=== PATIENT | female | born 1990 | race Two or more races ===

== ENCOUNTER 2024-08-30 05:47 | Emergency (ER) | payer MEDICAID, SELFPAY ==
[2024-08-30 05:50] VITALS: BP 144/83; PULSE 96; RESP 17; TEMP 36.8; O2SAT 97; BMI 46.6
--- NOTE | 2024-08-30 06:57 | PD.EDVAGBL ---
ED OB Contraction Preg RMI/HPI General Chief complaint: Vaginal Bleeding Stated complaint: 5 WKS PREG VAG BLEED ABD PAIN Time Seen by Provider: 08/30/24 06:26 Source: patient Arrival date/time: 08/30/24 05:47 This is a 34-year-old female who presents to the emergency department with acute complaints of vaginal bleeding for 2 days. She does report she is approximately 5 weeks of gestation does report she passed a large blood clot and tissue this morning prompting her ED ER visit today. Denies fever, dysuria mild pelvic pain reported. Limitations: no limitations Related Data Allergies Allergy/AdvReac Type Severity Reaction Status Date / Time No Known Allergies Allergy Verified 08/30/24 05:56 Review of Systems Review of Systems Systems Reviewed: All systems reviewed, normal except as documented Narrative Review of Systems: Gen: No fever, no chills, no weight loss EYES: No discharge, no visual changes, no pain HEENT: No ear pain, no congestion, no sore throat PULM: No shortness of breath, no cough, no congestion CV: No chest pain, no dyspnea on exertion, no palpitations GI: No nausea, no vomiting, no diarrhea, no pain, no constipation : No frequency, no urgency, no dysuria Musc/skel: No joint pain, no back pain Skin: No rash Psyc: No hallucinations, no depression Heme/Lymph: No easy bleeding or bruising tendencies Neuro: No weakness, no headache ED Exam General Limitations: Present no limitations General appearance: Present alert and in no apparent distress Head Head exam: Present atraumatic Eye Eye exam: Present normal appearance, PERRL and EOMI ENT ENT exam: Present normal exam, normal oropharynx and mucous membranes moist Neck Neck exam: Present normal inspection, full ROM and trachea midline Chest Chest inspection: Present normal inspection and symmetric chest wall rise Respiratory Respiratory exam: Present normal lung sounds bilaterally Cardiovascular Cardiovascular exam: Present regular rate, normal rhythm and normal heart sounds Abdominal Exam Abdominal exam: Present soft and normal bowel sounds Extremities Exam Extremities exam: Present normal inspection and full ROM Back Exam Back exam: Present normal inspection and full ROM Neurological Exam Neurological exam: Present alert, oriented X3 and CN II-XII intact Psychiatric Psychiatric exam: Present normal affect and normal mood Skin Skin exam: Present warm, dry, intact and normal color Course Quality Measures none Orders Category Date Time Status US OB <= 14 weeks fetus Stat Exams 08/30/24 07:23 Completed ABO/RH Type Stat Lab 08/30/24 07:50 Completed Beta HCG,Quantitative Stat Lab 08/30/24 07:50 Completed CBC Stat Lab 08/30/24 07:50 Completed Comprehensive Metabolic Panel Stat Lab 08/30/24 07:50 Completed Urinalysis Stat Lab 08/30/24 07:01 Completed Urine Culture Stat Lab 08/30/24 07:01 Received Vital Signs Vital signs: Vital Signs Temperature 98.2 F 08/30/24 05:50 Pulse Rate 96 08/30/24 05:50 Respiratory Rate 17 08/30/24 05:50 Blood Pressure 144/83 H 08/30/24 05:50 Pulse Oximetry (%) 97 08/30/24 05:50 Oxygen Delivery Method Room Air 08/30/24 05:50 Vaginal Bleeding MDM Narrative MDM Narrative: Patient presents with first-trimester vaginal bleeding and passage of tissue, concerning for threatened or spontaneous miscarriage. She is clinically stable, denies signs of hemodynamic compromise or infection. Given her gestational age (~5 weeks), the bleeding pattern, and reported passage of tissue, differentials include complete or incomplete spontaneous , subchorionic hemorrhage, or non-viable intrauterine . A pelvic ultrasound and quantitative beta-hCG are indicated to assess for intrauterine , retained products of conception, and to rule out ectopic - Pelvic ultrasound demonstrates no gestational sac. Beta-hCG quant 800. Symptoms and ultrasound most likely due to spontaneous miscarriage. At this time I will discharge patient close follow-up with [facility] serial quant's and repeat ultrasound. ER precautions given to return Patient data External records reviewed:: [facility] previous records Clinical information provided by:: patient Social determinants that could affect healthcare access:: none Patient has the following chronic illnesses:: No How is presenting disease/condition affected by chronic disease/condition?: no chronic disease Evaluation data The following diagnostics were reviewed and interpreted by me:: lab results and radiology exam(s) Lab and/or radiology exams considered but not ordered:: Not applicable Interpretation Summary: Examination: Complete OB ultrasound, less than 14 weeks, transabdominal Date and time of exam: August 30, 2024, 0754 hrs. Indications: Vaginal bleeding beginning 2 days ago. Technique: Obstetrical ultrasound images less than 14 weeks performed via transabdominal imaging Findings: Uterus 10.3 cm, no uterine mass or intrauterine gestation. Endometrial stripe 1.4 cm. Right ovary 3.4 cm arterial flow. Left ovary 2.4 cm arterial flow, 18 mm follicular cyst. Impression: No uterine mass or intrauterine gestation. Medications / Prescriptions Medications or Prescriptions considered but not ordered:: No Medication administrations:: Not applicable Consultations Consultation(s) initiated? (list below): No Diagnosis Vaginal Bleeding Differential Diagnosis: missed , threatened , menometrorrhagia, incomplete , ectopic without intrauterine and vaginal bleeding Most likely diagnosis given after review of the tests above:: Threatened Admission Indicated Admission indicated?: not indicated Admission Request Was there a request for admission?: No Disposition Plan Disposition Plan: Discharge Discharge Attestation Discharge Attestation: The patient and all family members were given an opportunity to ask questions and understood the discharge instructions. Discharge instructions specifically effects, indications for sooner follow up or return to the emergency department, and the expected course of current diagnosis. Patient condition: Stable Discharge Plan Plan Patient Disposition: HOME (Self Care) Prescriptions/Referrals Referrals: Bry Balderrama MD [Primary Care Provider] - In 1 week Problem List Clinical Impression: Complete miscarriage Patient/Caregiver Discharge Instructions Discharge Activity: activity as tolerated Education Materials: ED MISCARRIAGE Completed Additional Instructions: Your hCG is 800. Ultrasound does not demonstrate a gestational sac Please follow-up with your primary doctor or [facility] for follow-up care Will need a repeat of hCG quantitative number Return to the emergency department with any worsening symptoms or change in condition. Print Language: Kiswahili Stand Alone Forms: Kelly Award Info., Patient Portal Info Letter ROSAURA/CHEVY Supervising Physician ROSAURA/CHEVY Supervising Physician: Dr corcoran
--- NOTE | 2024-08-30 07:23 | XR_ITS ---
Examination: Complete OB ultrasound, less than 14 weeks, transabdominal Date and time of exam: August 30, 2024, 0754 hrs. Indications: Vaginal bleeding beginning 2 days ago. Technique: Obstetrical ultrasound images less than 14 weeks performed via transabdominal imaging Findings: Uterus 10.3 cm, no uterine mass or intrauterine gestation. Endometrial stripe 1.4 cm. Right ovary 3.4 cm arterial flow. Left ovary 2.4 cm arterial flow, 18 mm follicular cyst. Impression: No uterine mass or intrauterine gestation.
[2024-08-30 07:30] LABS: Collection Type, Urine Clean Catch
[2024-08-30 08:05] LABS: Bilirubin,Urine Negative (Negative); Blood,Urine 3+ (Negative); Calcium Oxalate Crystals,Urine 4+; Clarity,Urine Turbid (Clear/Hazy); Color,Urine Yellow (Lt Yel-Yel); Glucose, Urine Negative (Negative); Ketones,Urine Trace (Negative); Leukocyte Esterase,Urine Negative (Negative); Nitrite,Urine Negative (Negative); PH,Urine 6.0 (5.0-7.0); Protein,Urine 1+ (Neg - Trace); RBC,Urine 527 /hpf (0-3); Specific Gravity,Urine 1.042 (1.001-1.035); Squamous Epithelial Cell,Urine 3 /hpf (0-5); Urobilinogen,Urine 2.0 mg/dL (0.0-1.0); WBC,Urine 3 /hpf (0-5)
[2024-08-30 08:08] LABS: Basophils # (Auto) 0.1 Thou/mm3 (0.0-0.2); Basophils % (Auto) 1 % (0-2.5); Eosinophils # (Auto) 0.3 Thou/mm3 (0.0-0.5); Eosinophils % (Auto) 3 % (0-10); Hematocrit 32.5 % (36.0-46.0); Hemoglobin 11.1 g/dL (12.0-16.0); Immature Granulocytes Auto 0.02 Thou/mm3 (0.00-0.00); Lymphocytes # (Auto) 3.3 Thou/mm3 (1.0-4.8); Lymphocytes % (Auto) 40 % (10-50); Mean Corpuscular HGB Conc 34.2 g/dl (31.0-37.0); Mean Corpuscular Hemoglobin 30.4 pg (25.0-35.0); Mean Corpuscular Volume 89 fL (80-100); Monocytes # (Auto) 0.9 Thou/mm3 (0.0-0.8); Monocytes % (Auto) 11 % (0-12); Neutrophils # (Auto) 3.7 Thou/mm3 (1.8-7.7); Neutrophils % (Auto) 45 % (37-80); Nucleated Red Blood Cell # 0.00 Thou/mm3 (0.00-0.00); Nucleated Red Blood Cell % 0 /100 WBC (0); Platelet Count 215 Thou/mm3 (140-440); RDW Standard Deviation 46.3 fL (36.4-46.3); Red Blood Count 3.65 Miln/mm3 (4.00-5.20); White Blood Count 8.1 Thou/mm3 (3.6-11.0)
[2024-08-30 08:29] LABS: Alanine Aminotransferase 25 U/L (10-49); Albumin, Serum 4.2 gm/dL (3.5-5.0); Albumin/Globulin Ratio 1.6 (1.2-2.2); Alkaline Phosphatase 109 U/L (46-116); Anion Gap 9 (7-16); Aspartate Amino Transferase 27 U/L (0-34); BUN/Creatinine Ratio 13 Ratio (12-20); Bilirubin,Total 0.3 mg/dL (0.3-1.2); Blood Urea Nitrogen 8 mg/dL (9-23); Calcium 9.0 mg/dL (8.3-10.6); Calcium (Corrected) 9.0 mg/dL (8.5-10.1); Carbon Dioxide 25.9 mMol/L (20.0-31.0); Chloride 106 mMol/L (98-107); Creatinine (Component) 0.6 mg/dL (0.6-1.3); Estimated Creatinine Clearance 147.4 mL/min (>60); Globulin 2.6 gm/dL (2.3-3.5); Glucose 111 mg/dL (74-106); Osmolality,Calculated 280 (275-295); Potassium 3.6 mMol/L (3.4-5.1); Sodium 141 mMol/L (136-145); Total Protein 6.8 gm/dL (5.7-8.2); eGFR > 60 See Note
[2024-08-30 08:46] LABS: Beta HCG,Quantitative 874 mIU/mL (<5.0)
== END 2024-08-30 11:13 | disposition home or self-care (01) ==
PROVIDERS: Nurse Practitioner Primary Care; Emergency Provider Family Medicine; PCP Family Medicine
DX: O03.9 Complete or unspecified spontaneous abortion without complication (principal)
CPT/HCPCS: 36415; 76801; 80053; 81001; 84702; 85025; 86900; 86901; 87086; 99283